=== PATIENT | female | born 1980 | race Caucasian/White ===

== ENCOUNTER 2017-01-19 07:59 | Emergency (ER) | payer BC ==
[2017-01-19] MEDS ORDERED: Ketorolac Tromethamine 30 MG/ML VIAL ONE (08:25)
[2017-01-19] MEDS ORDERED: diphenhydrAMINE HCl 50 MG/ML 1 ML VIAL ONE ×2 (08:25→10:29)
[2017-01-19] MEDS ORDERED: Acetaminophen 500 MG TAB ONE (08:25)
[2017-01-19] MEDS ORDERED: Metoclopramide HCl 10 MG/2 ML VIAL ONE (08:25)
[2017-01-19] MEDS ORDERED: Water For Inject, Bacteriostat 30 ML ONE (10:17)
[2017-01-19] MEDS ORDERED: methylPREDNISolone Sod Succ/PF 125 MG/2 ML VIAL ONE (10:17)
[2017-01-19] MEDS ORDERED: Magnesium Sulfate 2 GM/100 ML BAG ONE (10:17)
== END 2017-01-19 11:31 | disposition home or self-care (01) ==
LOC: ERS 07:59
DX: G43.909 Migraine, unspecified, not intractable, without status migrainosus (principal); I25.2 Old myocardial infarction; I10 Essential (primary) hypertension; Z79.899 Other long term (current) drug therapy
CPT/HCPCS: 96361; 96365; 96367; 96375; 96376; J1200; J1885; J2765; J2930; J3475